=== PATIENT | female | born 1990 | race Caucasian/White ===

== ENCOUNTER 2020-07-23 13:31 | Emergency (ER) | payer SELFPAY ==
[2020-07-23 13:36] VITALS: BP 121/72
--- NOTE | 2020-07-23 13:44 | ER Document Report ---
HPI - HPI Patient complains to provider of: Medication refill Time Seen by Provider: 07/23/20 13:38 Pain Level: 0 Context: 29-year-old female past medical history significant for asthma presents to the emergency room requesting a refill of her albuterol inhaler. Patient states she moved here from [place] approximately 6 weeks ago and has not established with a primary care physician as of yet. States she did know her inhaler was out till she tried to use it this morning after having an asthma attack. Currently asymptomatic. Denies any shortness of breath, no difficulty breathing. Denies any chance of . Associated Symptoms: None Exacerbated by: Denies Relieved by: Denies Similar symptoms previously: No Recently seen / treated by doctor: No - ROS Systems Reviewed and Negative: Yes All other systems reviewed and negative - CONSTITUTIONAL Constitutional: DENIES: Fever, Chills - EENT EENT: DENIES: Sore Throat, Congestion - CARDIOVASCULAR Cardiovascular: DENIES: Chest pain - RESPIRATORY Respiratory: DENIES: Trouble Breathing, Coughing - REPRODUCTIVE Reproductive: DENIES: : - DERM Skin Color: Normal Skin Problems: None Past Medical History - General Information source: Patient - Social History Smoking Status: Current Every Day Smoker Frequency of alcohol use: Social Drug Abuse: None Family History: Reviewed & Not Pertinent Pulmonary Medical History: Reports: Hx Asthma Vertical Provider Document - CONSTITUTIONAL Agree With Documented VS: Yes Exam Limitations: No Limitations Notes: GENERAL: Mild acute distress, non-toxic appearance. HEAD: Normal with no signs of head trauma. EYES: PERRLA, EOMI, conjunctiva normal, no discharge. EARS: Hearing grossly intact. NOSE: Normal. THROAT: Oropharynx is normal. NECK: Normal range of motion, no tenderness, supple, no lymphadenopathy, No adenopathy, no JVD. CHEST: Clear breath sounds bilaterally. No wheezes, rales, or rhonchi. CARDIAC: Regular rate and rhythm. S1 and S2, without murmurs, gallops, or rubs. VASCULAR: No Edema. Peripheral pulses normal and equal in all extremities. ABDOMEN: Normal and soft with no tenderness, no masses or pulsatile masses. No organomegaly. Positive bowel sounds x4. No CVA tenderness noted bilaterally. GASTROINTESTINAL: Bowel sounds normal GENITOURINARY: Normal, No tenderness LYMPATHTIC: No lymphadenopathy noted. MUSCULOSKELETAL: Good range of motion of all major joints. Extremities without clubbing, cyanosis or edema. NEUROLOGICAL: Alert and oriented x 3. No focal sensory or strength deficits. Speech normal. Follows commands appropriately. PSYCHIATRIC: Normal Affect, judgement and mood. SKIN: Normal appearance with no rashes or lesions. - INFECTION CONTROL TRAVEL OUTSIDE OF THE [place] IN LAST 30 DAYS: No Course - Re-evaluation Re-evalutation: 07/23/20 13:41 Patient with a history of asthma moved here from [place] about a month and a half ago. Has not established with a primary care physician as of yet. Patient states she ran out of her inhaler today after having an asthma attack. Unable to get an appointment with urgent care. Patient is currently stable. Currently asymptomatic no acute distress counseled that we can give her a one-time prescription and counseled on importance of establishing with a primary care physician. She will be provided with the on-call physician. Use her inhaler as prescribed. Patient was given strict return to the emergency room guidelines. Return for any new or worsening symptoms. All questions were answered. Patient verbalized understanding and agrees with plan of care. 07/23/20 13:48 - Vital Signs Vital signs: Temp Pulse Resp BP Pulse Ox 98.2 F 74 16 121/72 99 07/23/20 13:35 07/23/20 13:35 07/23/20 13:35 07/23/20 13:35 07/23/20 13:35 Discharge - Discharge Clinical Impression: Medication refill Asthma Qualifiers: Asthma severity: mild Asthma persistence: intermittent Asthma complication type: uncomplicated Qualified Code(s): J45.20 - Mild intermittent asthma, uncomplicated Condition: Stable Disposition: HOME, SELF-CARE Instructions: Asthma ([facility]) Additional Instructions: Use your inhaler as prescribed. Establish with a primary care physician for outpatient follow-up. Return to the emergency room for any new or worsening symptoms. Prescriptions: Albuterol Sulfate [Proair HFA Inhalation Aerosol 8.5 gm MDI] 2 puff IH Q4H PRN #1 mdi PRN Reason: Referrals: KADY JOE DO [NO LOCAL MD] - Follow up as needed
== END 2020-07-23 13:50 | disposition home or self-care (01) ==
LOC: ER 13:31
DX: Z76.0 Encounter for issue of repeat prescription (principal); J45.20 Mild intermittent asthma, uncomplicated; Z79.51 Long term (current) use of inhaled steroids; F17.200 Nicotine dependence, unspecified, uncomplicated
CPT/HCPCS: 99283